=== PATIENT | male | born 1945 | race Caucasian/White ===

== ENCOUNTER 2017-07-08 05:07 | Inpatient (IN) | payer OTHER ==
[~2017-07-08] VITALS: Ht 172.7 cm; Wt 95.3 kg
[~2017-07-08 05:07] MED LIST: COR25 PO; LIP10 PO; LORA-258 PO; LOSA100T11 PO
[2017-07-08] MEDS ORDERED: ALVIMOPAN 12 MG CAPSULE PO ONE (05:41)
[2017-07-08] MEDS ORDERED: cefOXitin 1 GM IVPB PREMIX 100 ML IV ONE (05:42)
[2017-07-08] MEDS ORDERED: HYDR25TA4 PO (06:41)
[2017-07-08] MEDS ORDERED: ALBUTEROL SULFATE 0.083% 2.5 MG/3 ML VIAL.NEB INH ONE ×2 (07:15→07:36)
[2017-07-08] MEDS ORDERED: IPRATROPIUM BROM 0.5 MG/2.5 ML VIAL.NEB (ATROVENT) INH ONE ×2 (07:15→07:36)
[2017-07-08] MEDS ORDERED: cefOXitin SODIUM 2 GM/VIAL (MEFOXIN) IV ONE (07:31)
[2017-07-08] MEDS ORDERED: NS IRRIG SOLN 1000 ML IR ONE (07:31)
[2017-07-08] MEDS ORDERED: MIDAZOLAM HCL 5 MG/5 ML VIAL IVP ONE (07:31)
[2017-07-08] MEDS ORDERED: fentaNYL CITRATE/PF 100 MCG/2 ML AMP IVP ONE (07:31)
[2017-07-08] MEDS ORDERED: DEXAMETHASONE SOD PHOSPHATE 4 MG/ML VIAL IVP ONE (07:31)
[2017-07-08] MEDS ORDERED: MEPERIDINE HCL/PF 100 MG/ML AMP IM ONE (07:31)
[2017-07-08] MEDS ORDERED: ONDANSETRON HCL 4 MG/2 ML VIAL IVP ONE (07:31)
[2017-07-08] MEDS ORDERED: GLYCOPYRROLATE 0.2 MG/ML VIAL IJ ONE (07:31)
[2017-07-08] MEDS ORDERED: NS 1000 ML BAG IV ONE (07:31)
[2017-07-08] MEDS ORDERED: PROPOFOL 200MG/ 20ML VIAL (DIPRIVAN) IV ONE (07:31)
[2017-07-08] MEDS ORDERED: LR 1,000 ML IV.SOLN IV ONE (07:31)
[2017-07-08] MEDS ORDERED: METOCLOPRAMIDE HCL 10 MG/2 ML VIAL IVP ONE (07:31)
[2017-07-08] MEDS ORDERED: SEVOFLURANE 15 MIN GAS INH ONE (07:31)
[2017-07-08] MEDS ORDERED: ROCURONIUM BROMIDE 10 MG/ML (ZEMURON) IV ONE (07:31)
[2017-07-08] MEDS ORDERED: LR 1,000 ML IV ONE (09:18)
[2017-07-08] MEDS ORDERED: ePHEDrine sulfate 50 MG/ML VIAL IVP PRN (09:30)
[2017-07-08] MEDS ORDERED: ONDANSETRON HCL 4 MG/2 ML VIAL IVP PRN ×3 (09:30→11:45)
[2017-07-08] MEDS ORDERED: NALBUPHINE HCL 10 MG/ML AMP IVP PRN (09:30)
[2017-07-08] MEDS ORDERED: fentaNYL CITRATE/PF 100 MCG/2 ML AMP IVP PRN (09:30)
[2017-07-08] MEDS ORDERED: NALOXONE HCL 0.4 MG/ML AMP (NARCAN) IVP PRN (09:30)
[2017-07-08] MEDS ORDERED: DIPHENHYDRAMINE INJ 50 MG/ML VIAL IVP PRN (09:30)
[2017-07-08] MEDS ORDERED: BUPIVACAINE LIPOSOME/PF 266 MG/20 ML VIAL INFIL ONE (10:00)
[2017-07-08] MEDS ORDERED: HYDROcodone/ACETAMIN 5-325 MG TAB (NORCO/ VICODIN) PO PRN (11:45)
[2017-07-08] MEDS ORDERED: ACETAMINOPHEN 325 MG TABLET PO PRN (11:45)
[2017-07-08] MEDS ORDERED: fentaNYL CITRATE/PF 100 MCG/2 ML AMP ONE (12:33)
[2017-07-08 13:24] VITALS: BP_SYST 155
[2017-07-08 14:02] VITALS: BP_SYST 164
[2017-07-08 14:16] LABS: HEMATOCRIT 35.8 % (36-54); HEMOGLOBIN 11.8 g/dL (14.0-18.0)
[2017-07-08 14:31] LABS: ANION GAP 9 (5-15); CALCIUM 8.4 mg/dL (8.4-11.0); CHLORIDE 108 mmol/L (98-107); CREATININE 1.39 mg/dL (0.55-1.30); GLUCOSE 161 mg/dL (70-99); POTASSIUM 4.6 mmol/L (3.5-5.1); SODIUM SERUM 139 mmol/L (136-145); UREA NITROGEN, BLOOD 23 mg/dL (8-21)
[2017-07-08] MEDS ORDERED: FLU VACC QS 2017-18(36MOS+)/PF 0.5 ML/SYR SYRINGE I.M. PRN (14:45)
[2017-07-08] MEDS ORDERED: LORazepam 2 MG/ML VIAL IVP ONE (15:30)
[2017-07-08 18:05] VITALS: BP_SYST 139
[2017-07-08 20:00] VITALS: BP_SYST 153
[2017-07-08] MEDS: ALVIMOPAN 12 MG CAPSULE PO SCH ×2 (21:00→21:15)
[2017-07-08] MEDS: FAMOTIDINE PF 20 MG/2 ML VIAL IVP SCH (21:16)
[2017-07-08] MEDS: HYDROmorphone 1 MG INJ. 1 MG/ML AMPUL IVP PRN (21:16)
[2017-07-08] MEDS: D5/0.45 NS 1,000 ML IV SCH (21:17)
[2017-07-08] MEDS: cefOXitin SODIUM 2 GM in D5W 100 ML IV SCH (21:18)
[2017-07-09] VITALS (7 sets, daily range): BP systolic 123–164
[2017-07-09] MEDS: HYDROmorphone 1 MG INJ. 1 MG/ML AMPUL IVP PRN (06:44)
[2017-07-09] MEDS: D5/0.45 NS 1,000 ML IV SCH ×2 (06:45→18:43)
[2017-07-09 06:56] LABS: ANION GAP 9 (5-15); CALCIUM 8.1 mg/dL (8.4-11.0); CHLORIDE 106 mmol/L (98-107); CREATININE 1.28 mg/dL (0.55-1.30); GLUCOSE 131 mg/dL (70-99); POTASSIUM 4.2 mmol/L (3.5-5.1); SODIUM SERUM 138 mmol/L (136-145); UREA NITROGEN, BLOOD 22 mg/dL (8-21)
[2017-07-09 07:02] LABS: ALANINE AMINOTRANSFERASE 11 U/L (12-78); ALBUMIN 3.3 g/dL (3.4-4.8); ASPARTATE AMINOTRANSFERASE 16 U/L (10-37); TOTAL BILIRUBIN 0.6 mg/dL (0.0-1.0)
[2017-07-09 07:16] LABS: BASOPHILS % (AUTO) 0.1 % (0.0-2.0); HEMATOCRIT 34.3 % (36-54); HEMOGLOBIN 11.9 g/dL (14.0-18.0); LYMPHOCYTES # (AUTO) 0.8 K/uL (1.0-5.5); LYMPHOCYTES % (AUTO) 6.4 % (20.5-51.5); MEAN CORPUSCULAR HEMOGLOBIN 32 pg (27-31); MEAN CORPUSCULAR HGB CONC 35 % (32-36); MEAN CORPUSCULAR VOLUME 92 fL (79.0-98.0); MONOCYTES # (AUTO) 1.2 K/uL (0.0-1.0); MONOCYTES % (AUTO) 10.2 % (1.7-9.3); NEUTROPHILS # (AUTO) 10.2 K/uL (1.8-7.7); NEUTROPHILS % (AUTO) 83.3 % (40.0-70.0); PLATELET COUNT (AUTO) 190 K/uL (130-430); RED BLOOD CELL COUNT(AUTO) 3.72 MIL/uL (4.2-6.2); RED CELL DISTRIBUTION WIDTH 14.7 % (9.0-15.0); WHITE BLOOD COUNT (AUTO) 12.3 K/uL (4.8-10.8)
[2017-07-09] MEDS: cefOXitin SODIUM 2 GM in D5W 100 ML IV SCH (09:36)
[2017-07-09] MEDS: ENOXAPARIN SODIUM 30 MG/0.3 ML SYRINGE SUBCUT SCH (09:37)
[2017-07-09] MEDS: FAMOTIDINE PF 20 MG/2 ML VIAL IVP SCH ×2 (09:37→21:52)
[2017-07-09] MEDS: LOSARTAN POTASSIUM 50 MG TABLET (COZAAR) PO SCH (11:48)
[2017-07-09] MEDS: ALVIMOPAN 12 MG CAPSULE PO SCH ×2 (11:49→21:52)
[2017-07-09] MEDS: CARVEDILOL 25 MG TABLET (COREG) PO SCH ×2 (11:50→21:52)
[2017-07-09] MEDS: HYDROcodone/ACETAMIN 5-325 MG TAB (NORCO/ VICODIN) PO PRN (16:21)
[2017-07-09] MEDS: LORazepam 1 MG TABLET PO PRN (18:48)
[2017-07-10 03:45] VITALS: BP_SYST 129
[2017-07-10] MEDS: D5/0.45 NS 1,000 ML IV SCH (05:55)
[2017-07-10 07:15] LABS: ANION GAP 7 (5-15); CALCIUM 8.1 mg/dL (8.4-11.0); CHLORIDE 106 mmol/L (98-107); GLUCOSE 113 mg/dL (70-99); POTASSIUM 4.1 mmol/L (3.5-5.1); SODIUM SERUM 137 mmol/L (136-145); UREA NITROGEN, BLOOD 23 mg/dL (8-21)
[2017-07-10 07:22] LABS: BASOPHILS % (AUTO) 0.3 % (0.0-2.0); EOSINOPHILS # (AUTO) 0.1 K/uL (0.0-0.4); EOSINOPHILS % (AUTO) 0.9 % (0.0-4.0); HEMATOCRIT 30.8 % (36-54); HEMOGLOBIN 10.8 g/dL (14.0-18.0); LYMPHOCYTES # (AUTO) 1.3 K/uL (1.0-5.5); LYMPHOCYTES % (AUTO) 10.6 % (20.5-51.5); MEAN CORPUSCULAR HEMOGLOBIN 33 pg (27-31); MEAN CORPUSCULAR HGB CONC 35 % (32-36); MEAN CORPUSCULAR VOLUME 93 fL (79.0-98.0); MONOCYTES # (AUTO) 1.3 K/uL (0.0-1.0); MONOCYTES % (AUTO) 10.5 % (1.7-9.3); NEUTROPHILS # (AUTO) 9.8 K/uL (1.8-7.7); NEUTROPHILS % (AUTO) 77.7 % (40.0-70.0); PLATELET COUNT (AUTO) 180 K/uL (130-430); RED BLOOD CELL COUNT(AUTO) 3.32 MIL/uL (4.2-6.2); RED CELL DISTRIBUTION WIDTH 14.4 % (9.0-15.0); WHITE BLOOD COUNT (AUTO) 12.5 K/uL (4.8-10.8)
[2017-07-10] MEDS: LORazepam 1 MG TABLET PO PRN (07:26)
[2017-07-10] MEDS: FAMOTIDINE PF 20 MG/2 ML VIAL IVP SCH (08:51)
[2017-07-10] MEDS ORDERED: ATORVASTATIN 10 MG TABLET PO SCH (09:00)
[2017-07-10] MEDS ORDERED: HYDROCHLOROTHIAZIDE 25 MG TABLET (HCTZ) PO SCH (09:00)
[2017-07-10] MEDS: CARVEDILOL 25 MG TABLET (COREG) PO SCH (09:24)
[2017-07-10] MEDS: LOSARTAN POTASSIUM 50 MG TABLET (COZAAR) PO SCH (09:24)
[2017-07-10] MEDS: ALVIMOPAN 12 MG CAPSULE PO SCH (09:24)
[2017-07-10] MEDS: ENOXAPARIN SODIUM 30 MG/0.3 ML SYRINGE SUBCUT SCH (09:25)
[2017-07-10] MEDS: HYDROcodone/ACETAMIN 5-325 MG TAB (NORCO/ VICODIN) PO PRN (09:35)
[2017-07-10] MEDS ORDERED: ALBUTEROL SULFATE 0.083% 2.5 MG/3 ML VIAL.NEB INH PRN (10:15)
[2017-07-10 10:27] VITALS: BP_SYST 129
[2017-07-10 12:34] VITALS: BP_SYST 99
[2017-07-10 16:41] VITALS: BP_SYST 101
== END 2017-07-10 15:37 | disposition home or self-care (01) | DRG 331 ==
LOC: SMU 05:07
PROVIDERS: ADMIT Colon & Rectal Surgery; ATTEND Colon & Rectal Surgery
PROC: 0DJD8ZZ Inspection of Lower Intestinal Tract, Via Natural or Artificial Opening Endoscopic (ICD-10-PCS; 2017-07-08)
PROC: 0DTP4ZZ Resection of Rectum, Percutaneous Endoscopic Approach (ICD-10-PCS; 2017-07-08)
PROC: 0DTF4ZZ Resection of Right Large Intestine, Percutaneous Endoscopic Approach (ICD-10-PCS; principal; 2017-07-08 07:30)
DX: C18.7 Malignant neoplasm of sigmoid colon (principal); I10 Essential (primary) hypertension; D12.3 Benign neoplasm of transverse colon; F41.9 Anxiety disorder, unspecified; J45.909 Unspecified asthma, uncomplicated; Z85.46 Personal history of malignant neoplasm of prostate; Z87.891 Personal history of nicotine dependence
CPT/HCPCS: 36415; 80048; 80053; 85018-TC; 85025; 87081; 88309; 94640; 94760; 97116-GP; 97530-GP; C1727; C9290; J0694; J1100; J1170; J1650; J2060; J2175; J2250; J2405; J2704; J2765; J3010; J3490; J7030; J7060; J7120